=== PATIENT | male | born 1980 | race American Indian/Alaskan Native ===

== ENCOUNTER 2017-04-01 22:23 | Emergency (ER) | payer MEDICAID, OTHER ==
[2017-04-02] MEDS ORDERED: TYLENOL PO ONE (01:25)
[2017-04-02] MEDS ORDERED: TYLENOL ONE (01:26)
[2017-04-02] MEDS ORDERED: PERCOCET 5/325 PO ONE (08:06)
[2017-04-02] MEDS ORDERED: ZOFRAN ODT PO ONE (08:06)
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
[2017-04-02 08:41] VITALS: BP 100/63
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
== END 2017-04-02 10:43 | disposition home or self-care (01) ==
LOC: ED 22:23
DX: M54.9 Dorsalgia, unspecified (principal); G89.29 Other chronic pain; V49.49XA Driver injured in collision with other motor vehicles in traffic accident, initial encounter; Y93.89 Activity, other specified; Y92.89 Other specified places as the place of occurrence of the external cause; Y99.8 Other external cause status
CPT/HCPCS: 72125; 72128; 72131; Q0162

== ENCOUNTER 2017-05-02 18:59 | Emergency (ER) | payer MEDICAID, OTHER ==
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
[2017-05-02] MEDS ORDERED: NORCO 5/325 PO ONE (20:53)
--- NOTE | 2017-05-02 21:42 | XRay Report ---
FINAL REPORT EXAM: XR KNEE 3V LT HISTORY: LT KNEE PAIN COMPARISON: None available. FINDINGS: Three views of left knee obtained. No acute fracture dislocation. Small patellar enthesophyte. Joint spaces are grossly preserved. No suprapatellar effusion. IMPRESSION: No acute bony abnormality.
[2017-05-02 21:43] VITALS: BP 140/85
== END 2017-05-02 21:10 | disposition home or self-care (01) ==
LOC: ED 18:59
DX: M25.562 Pain in left knee (principal); I10 Essential (primary) hypertension

== ENCOUNTER 2018-07-07 22:16 | Emergency (ER) | payer MEDICAID, OTHER ==
[2018-07-07 22:41] VITALS: BP 123/71
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
--- NOTE | 2018-07-07 23:57 | XRay Report ---
FINAL REPORT PROCEDURE: XR SPINE LUMBOSACRAL 2-3V TECHNIQUE: Lumbar spine radiographs, frontal and lateral views. CPT 44936 HISTORY: back pain with leg side pain COMPARISON: No prior studies are available for comparison. FINDINGS: Alignment: Normal . Vertebral body heights/Disk spaces: Normal . Fracture(s): None . Facets: Normal . Bone mineralization: Normal . IMPRESSION: Normal Examination
[2018-07-08] MEDS ORDERED: NORCO 5/325 PO ONE (01:13)
[2018-07-08] MEDS ORDERED: NORCO 5/325 ONE (01:13)
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
== END 2018-07-08 02:35 | disposition home or self-care (01) ==
LOC: ED 22:16
DX: M54.42 Lumbago with sciatica, left side (principal)
CPT/HCPCS: 72100; 99283